=== PATIENT | male | born 1995 | race American Indian/Alaskan Native ===

== ENCOUNTER 2017-07-01 12:55 | Emergency (ER) | payer OTHER ==
[2017-07-01 13:26] VITALS: BMI 30.7
[2017-07-01 13:29] VITALS: RESP 18; TEMP 98.1; O2SAT 100
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
[2017-07-01 23:44] VITALS: BP 125/71; PULSE 82
== END 2017-07-01 15:45 | disposition home or self-care (01) ==
LOC: ED 12:55
DX: S82.891A Other fracture of right lower leg, initial encounter for closed fracture (principal); S43.402A Unspecified sprain of left shoulder joint, initial encounter; V49.9XXA Car occupant (driver) (passenger) injured in unspecified traffic accident, initial encounter

== ENCOUNTER 2017-12-16 10:32 | Emergency (ER) | payer OTHER ==
[2017-12-16 10:33] VITALS: BMI 30.7
[2017-12-16] MEDS ORDERED: TDAP Vaccine 0.5 mL Syr IM ONE (10:53)
[2017-12-16] MEDS ORDERED: Tmp-Smz 800 mg-160 mg DS Tab PO STA (10:53)
--- NOTE | 2017-12-16 10:53 | ED PDOC ---
Arrival/HPI - General Chief Complaint: Abnormal Skin Integrity Time Seen by Provider: 12/16/17 10:41 Historian: Patient - History of Present Illness Narrative History of Present Illness (Text): 12/16/17 10:49 22yr old male presents today with a 5 day history of pain and swelling to left posterior arm distal to elbow. pt states while in [facility] he had some pain and redness to the posterior arm and was placed on topical abx. pt states pain has worsened. pt denies fever/chills. pt c/o pain to posterior arm. pt states while he was in [facility] they told him he was bit by spider. pt states he hasnt taken any medications for pain. pt denies trauma or injury. no numbness, weakness, tingling in the extremity. no other complaints. Past Medical History - Provider Review Nursing Documentation Reviewed: Yes - Travel History Have you recently traveled outside [place] w/in the past 3 mons?: No - Past History Past History: No Previous - Tetanus Immunization Tetanus Immunization: Unknown - Psychiatric Hx Psychophysiologic Disorder: No Hx Substance Use: Yes (CANNABIS) - Surgical History Hx Appendectomy: Yes - Anesthesia Hx Anesthesia: Yes Hx Anesthesia Reactions: No Hx Malignant Hyperthermia: No Family/Social History - Physician Review Nursing Documentation Reviewed: Yes Family/Social History: Unknown Family HX Smoking Status: Never Smoked Hx Alcohol Use: Yes Frequency of alcohol use: Socially Hx Substance Use: Yes (CANNABIS) Allergies/Home Meds Allergies/Adverse Reactions: Allergies No Known Allergies Allergy (Verified 12/16/17 10:34) Review of Systems - Review of Systems Constitutional: absent: Fatigue, Fevers Respiratory: absent: SOB, Cough Cardiovascular: absent: Chest Pain, Palpitations Gastrointestinal: absent: Abdominal Pain, Nausea, Vomiting Musculoskeletal: Arthralgias Skin: Abscess, Cellulitis Neurological: absent: Headache, Dizziness Psychiatric: absent: Anxiety, Depression Physical Exam Vital Signs Reviewed: Yes Temperature: Afebrile Blood Pressure: Normal Pulse: Regular Respiratory Rate: Normal Appearance: Positive for: Well-Appearing, Non-Toxic, Comfortable Pain Distress: None Mental Status: Positive for: Alert and Oriented X 3 - Systems Exam Head: Present: Atraumatic Neck: Present: Normal Range of Motion Respiratory/Chest: Present: Clear to Auscultation, Good Air Exchange. No: Respiratory Distress, Accessory Muscle Use Cardiovascular: Present: Regular Rate and Rhythm, Normal S1, S2. No: Murmurs Upper Extremity: Present: Normal ROM (full rom of elbow, hand, wrist, shoulder. ), NORMAL PULSES, Tenderness (left arm: there is a 5cm round area of erythema, edema and induration with a 5mm round wound with purulent discharge. + tenderness. + warmth. erythema and edema does not extend distally or proximally. erythema does NOT extend over elbow joint. ), Swelling, Erythema, Neurovascularly Intact, Capillary Refill < 2s. No: Deformity Neurological: Present: GCS=15, Speech Normal, Motor Func Grossly Intact, Normal Sensory Function Skin: Present: Warm, Dry, Normal Color Psychiatric: Present: Alert, Oriented x 3 Medical Decision Making ED Course and Treatment: 12/16/17 10:58 22yr old male with abscess/cellulitis to left arm. toradol given for pain. pt is unsure of last tetanus shot. will update tetanus shot today. area of erythema outlined with marking pen. erythema does not extend over elbow joint. full rom of elbow. sensation and distal pulses intact. pt with draining abscess. bactracin and dressing applied. pt started on bactrim and keflex po. advised patient that we will trial outpatient abx. advised warm compresses. advised return in 2 days for wound check. advised IMMEDIATE return if symptoms worsen,persist or if new symptoms develop. increased pain/swelling, purulent discharge, high fevers or if any other concerning symptoms develop. Patient verbalizes understanding of discharge instructions and need for immediate followup. impression;abscess, cellulitis Motrin one tablet every 6 hours as needed for pain Keflex; 1 capsule 4 times daily x 7 days. Bactrim DS: One tablet twice daily x7 days Warm compresses and warm soaks frequently Return in 2 days wound check Return immediately if symptoms worsen persist or if new symptoms develop: High fevers, increasing pain, increasing redness, swelling or if any other concerning symptoms develop. Disposition/Present on Arrival - Present on Arrival Any Indicators Present on Arrival: No History of DVT/PE: No History of Uncontrolled Diabetes: No Urinary Catheter: No History of Decub. Ulcer: No History Surgical Site Infection Following: None - Disposition Have Diagnosis and Disposition been Completed?: Yes Diagnosis: Cellulitis of arm, Abscess of arm Disposition: HOME/ ROUTINE Disposition Time: 10:48 Patient Plan: Discharge Patient Problems: Current Active Problems Problem Status Onset Abscess of arm Acute Cellulitis of arm Acute Condition: GOOD Discharge Instructions (ExitCare): Boil (DC), Cellulitis (ED) Additional Instructions: Motrin one tablet every 6 hours as needed for pain Keflex; 1 capsule 4 times daily x 7 days. Bactrim DS: One tablet twice daily x7 days Warm compresses and warm soaks frequently Return in 2 days wound check Return immediately if symptoms worsen persist or if new symptoms develop: High fevers, increasing pain, increasing redness, swelling or if any other concerning symptoms develop. Prescriptions: Cephalexin [Keflex] 500 mg PO QID #28 capsule Ibuprofen [Motrin] 600 mg PO Q6H PRN #20 tab PRN Reason: pain/fever reduction Sulfamethoxazole/Trimethoprim [Bactrim DS 800 mg-160 mg] 1 tab PO BID #14 tab Referrals: Camryn Sterling MD [Staff Provider] - Follow up with primary Judy Lim MD [Medical Doctor] - Follow up with primary [facility] [Outside] - Follow up with primary Forms: [employer] (L[place]ian), WORK NOTE
[2017-12-16 10:54] VITALS: RESP 18
[2017-12-16 11:28] VITALS: BP 121/73; PULSE 76; TEMP 98.2; O2SAT 98
== END 2017-12-16 11:26 | disposition home or self-care (01) ==
LOC: ED 10:32
DX: L03.114 Cellulitis of left upper limb (principal); L02.414 Cutaneous abscess of left upper limb; Z23 Encounter for immunization
CPT/HCPCS: 90471; 90715; 96372; 99283; J1885

== ENCOUNTER 2017-12-18 08:52 | Emergency (ER) | payer OTHER ==
[2017-12-18 09:06] VITALS: BMI 28.7
[2017-12-18 09:09] VITALS: BP 122/78; PULSE 93; RESP 18; TEMP 97.6; O2SAT 99
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
== END 2017-12-18 09:57 | disposition home or self-care (01) ==
LOC: ED 08:52
DX: L03.114 Cellulitis of left upper limb (principal); L02.414 Cutaneous abscess of left upper limb

== ENCOUNTER 2017-12-20 19:43 | Emergency (ER) | payer OTHER ==
[2017-12-20 19:44] VITALS: BMI 28.7
--- NOTE | 2017-12-20 20:14 | ED PDOC ---
Arrival/HPI - General Chief Complaint: Upper Extremity Problem/Injury Time Seen by Provider: 12/20/17 19:54 Historian: Patient - History of Present Illness Narrative History of Present Illness (Text): 12/20/17 20:14 A 22 year old male, with no significant past medical history, presents to the emergency department for follow-up of left forearm wound. Patient reports he was here 2 days ago and had an I&D procedure performed and was advised to follow-up. He mentions small packing came out on its own. States wound has been improving with diminished swelling and experiences no pain at wound site. Patient has no symptomatic or any other physical complaints at this time. No PMD Past Medical History - Provider Review Nursing Documentation Reviewed: Yes - Past History Past History: No Previous - Infectious Disease Hx of Infectious Diseases: None - Tetanus Immunization Tetanus Immunization: Unknown - Cardiac Hx Cardiac Disorders: No - Pulmonary Hx Respiratory Disorders: No - Neurological Hx Neurological Disorder: No - HEENT Hx HEENT Disorder: No - Renal Hx Renal Disorder: No - Endocrine/Metabolic Hx Endocrine Disorders: No - Hematological/Oncological Hx Blood Disorders: No - Integumentary Hx Dermatological Disorder: No - Musculoskeletal/Rheumatological Hx Musculoskeletal Disorders: No - Gastrointestinal Hx Gastrointestinal Disorders: No - Genitourinary/Gynecological Hx Genitourinary Disorders: No - Psychiatric Hx Psychophysiologic Disorder: No Hx Substance Use: Yes (Marijuana) - Surgical History Hx Appendectomy: Yes - Anesthesia Hx Anesthesia: Yes Hx Anesthesia Reactions: No Hx Malignant Hyperthermia: No Family/Social History - Physician Review Nursing Documentation Reviewed: Yes Family/Social History: No Known Family HX Smoking Status: Never Smoked Hx Alcohol Use: Yes Hx Substance Use: Yes (Marijuana) Allergies/Home Meds Allergies/Adverse Reactions: Allergies No Known Allergies Allergy (Verified 12/20/17 20:04) Review of Systems - Physician Review All systems were reviewed & negative as marked: Yes - Review of Systems Constitutional: absent: Fevers, Night Sweats Musculoskeletal: absent: Other (patient denies any pain to site of wound to left forearm.) Physical Exam Vital Signs Reviewed: Yes Vital Signs Temp Pulse Resp BP Pulse Ox 12/20/17 20:01 98.4 F 101 H 18 129/78 100 Temperature: Afebrile Blood Pressure: Normal Pulse: Regular Respiratory Rate: Normal Appearance: Positive for: Well-Appearing, Non-Toxic, Comfortable Pain Distress: None Mental Status: Positive for: Alert and Oriented X 3 - Systems Exam Upper Extremity: Present: Normal ROM (left forearm), Erythema (minimal surrounding erythema to wound site on left forearm), Neurovascularly Intact, Other (small (less than dime sized) open wound to left forearm, no purial drainage). No: Tenderness (no palpable tenderness) Lower Extremity: Present: Normal Inspection. No: Edema Neurological: Present: GCS=15, CN II-XII Intact, Speech Normal Skin: Present: Warm, Dry, Normal Color. No: Rashes Psychiatric: Present: Alert, Oriented x 3, Normal Insight, Normal Concentration Medical Decision Making ED Course and Treatment: 12/20/17 20:15 Impression: 22 year old male here for follow-up of wound to left forearm. Physical exam shows on left forearm: small dime-sized open wound, minimal surrounding erythema, no palpable tenderness, no purial drainage, neurovascularly intact, full ROM. Plan: -- Reassess and disposition Prior Visits: Notes and results from previous visits were reviewed. Patient was last seen in the emergency department on 12/18/2017 for reevaluation of wound to left forearm, sustained approximately 1 week ago from the date 12/18/2017. Patient was discharged and was given TDAP, antibiotics, and wound care treatment, and told to follow-up on I&D performed. Progress Notes: 12/20/17 20:16 Continue to have daily wound dressing change, wound clean, continue on antibiotics as previously prescribed, and for patient to follow-up within 48-72 hours for wound check. - Scribe Statement The provider has reviewed the documentation as recorded by the Roger Hudson Provider Scribe Attestation: All medical record entries made by the Roger were at my direction and personally dictated by me. I have reviewed the chart and agree that the record accurately reflects my personal performance of the history, physical exam, me dical decision making, and the department course for this patient. I have also personally directed, reviewed, and agree with the discharge instructions and disposition. Disposition/Present on Arrival - Present on Arrival Any Indicators Present on Arrival: No History of DVT/PE: No History of Uncontrolled Diabetes: No Urinary Catheter: No History of Decub. Ulcer: No History Surgical Site Infection Following: None - Disposition Have Diagnosis and Disposition been Completed?: Yes Diagnosis: Wound check, abscess Disposition: HOME/ ROUTINE Disposition Time: 20:29 Patient Plan: Discharge Condition: STABLE Additional Instructions: Keep wound clean and dry/daily wound dressing changes/continue current antibiotics/follow up in 48-72 hrs for wound check/any worsening symptoms(recurrent redness/swelling/wound discharge/fever,ecc./return sooner Referrals: PCP,NO [Primary Care Provider] - Follow up with primary Forms: [facility] (Spanish)
[2017-12-20 20:41] VITALS: BP 126/72; PULSE 92; RESP 17; TEMP 98.2; O2SAT 99
== END 2017-12-20 20:40 | disposition home or self-care (01) ==
LOC: ED 19:43
DX: Z48.00 Encounter for change or removal of nonsurgical wound dressing (principal); L02.414 Cutaneous abscess of left upper limb